=== PATIENT | male | born 1975 | race Caucasian/White ===

== ENCOUNTER → 2022-04-15 09:32 | Outpatient (BNVA) | payer OTHER, SELFPAY | PROVIDERS: Visit Provider Physician Assistant | DX: M24.812 Other specific joint derangements of left shoulder, not elsewhere classified (principal); M77.12 Lateral epicondylitis, left elbow | CPT/HCPCS: 99203 ==

== ENCOUNTER → 2022-04-19 09:13 | Outpatient (BNVA) | payer OTHER, SELFPAY | PROVIDERS: Visit Provider Physician Assistant Medical | DX: M24.812 Other specific joint derangements of left shoulder, not elsewhere classified (principal); M77.12 Lateral epicondylitis, left elbow | CPT/HCPCS: 99213 ==

== ENCOUNTER → 2022-05-06 09:17 | Outpatient (BNVA) | payer OTHER, SELFPAY | PROVIDERS: Visit Provider Physician Assistant Medical | DX: M77.12 Lateral epicondylitis, left elbow (principal) | CPT/HCPCS: 73080; 99214 ==

== ENCOUNTER → 2022-05-18 09:13 | Outpatient (BNVA) | payer OTHER, SELFPAY | PROVIDERS: Visit Provider Physician Assistant Medical | DX: M77.12 Lateral epicondylitis, left elbow (principal) | CPT/HCPCS: 99213 ==

== ENCOUNTER → 2022-06-07 09:26 | Outpatient (BNVA) | payer OTHER, SELFPAY | PROVIDERS: Visit Provider Physician Assistant Medical | DX: M77.12 Lateral epicondylitis, left elbow (principal) | CPT/HCPCS: 99213 ==

== ENCOUNTER → 2022-06-22 09:14 | Outpatient (BNVA) | payer OTHER, SELFPAY | PROVIDERS: Visit Provider Physician Assistant Medical | DX: M77.12 Lateral epicondylitis, left elbow (principal) | CPT/HCPCS: 99213 ==

== ENCOUNTER → 2022-07-08 09:27 | Outpatient (BNVA) | payer OTHER, SELFPAY | PROVIDERS: Visit Provider Physician Assistant Medical | DX: M77.12 Lateral epicondylitis, left elbow (principal) | CPT/HCPCS: 99213 ==